=== PATIENT | female | born 1960 | race Caucasian/White ===

== ENCOUNTER → 2016-06-23 | Outpatient (CLI) | payer BC ==
[~2016-06-23] MED LIST: HYDR-5688 PO; OMEGCAP2 PO; POLYSOL4 OPB
--- NOTE | 2016-06-24 12:37 | MAMMOGRAPHY REPORT ---
BILATERAL DIGITAL SCREENING MAMMOGRAM TOMOSYNTHESIS WITH CAD: 06/23/2016 CLINICAL HISTORY: Routine screening. Patient has no complaints. TECHNIQUE: Breast tomosynthesis in addition to standard 2D mammography was performed. Current study was also evaluated with a Computer Aided Detection (CAD) system. COMPARISON: Comparison is made to exams dated: 06/20/2015 mammogram, 05/31/2013 mammogram, 05/25/2012 m ammogram, 05/19/2011 mammogram, 05/13/2010 mammogram, and 05/12/2009 mammogram - [facility]. BREAST COMPOSITION: The tissue of both breasts is extremely dense, which lowers the sensitivity of mammography. FINDINGS: There are diffuse bilateral microcalcifications. Stable asymmetries in the medial posteri or right breast and medial posterior left breast. No new suspicious mass, architectural distortion or cluster of microcalcifications is seen. IMPRESSION: ACR BI-RADS CATEGORY 1: NEGATIVE There is no mammographic evidence of malignancy. A 1 year screening mammogram is recommended. The p atient will receive written notification of the results. Approximately 10% of breast cancers are not detected with mammography. A negative mammographic repor t should not delay biopsy if a clinically suggestive mass is present. Marci Bright M.D. ay/:06/23/2016 22:12:20 Piano Regulator Inspector: Joelle HINOJOSA)(M), [facility] letter sent: Normal 1/2 BI-RADS Code: ACR BI-RADS Category 1: Negative
== END | disposition home or self-care (01) ==
LOC: C.MAMM 08:01
PROVIDERS: ATTEND Obstetrics & Gynecology
DX: Z12.31 Encounter for screening mammogram for malignant neoplasm of breast (principal)

== ENCOUNTER → 2016-07-15 | Outpatient (CLI) | payer BC | END | disposition home or self-care (01) | LOC: C.PAPS 14:43 | PROVIDERS: ATTEND Obstetrics & Gynecology | DX: Z01.419 Encounter for gynecological examination (general) (routine) without abnormal findings (principal); Z87.42 Personal history of other diseases of the female genital tract ==

== ENCOUNTER 2017-01-13 13:12 | Emergency (ER) | payer BC ==
[~2017-01-13] VITALS: Ht 157.5 cm; Wt 53.6 kg
[~2017-01-13 13:12] MED LIST changes: -HYDR-5688 PO
[2017-01-13 13:19] VITALS: TEMP 36.5; Ht 157.5 cm; Wt 53.6 kg
--- NOTE | 2017-01-13 13:24 | EMERGENCY ROOM VISIT NOTE ---
History First contact with patient: 13:24 (Yumi Landry M.D.) Chief Complaint: CHEST PAIN Stated Complaint: DIZZY HEAVY CHEST History of Present Illness The patient is a 56 year old female who presents to the Emergency Room with complaints of dizziness since 9 pm last night which began after running 4 miles last evening. She also complains of chest discomfort for the past several years as well as occasional palpitations for the past several years which have been heightened and more apparent in the last month since she began running 4 miles 3 times per week. She feels this is different than feeling dizzy from dehydration, as she feels her body veers off to one side and it changes/worsens with change in position. She has previously used albuterol inhalers for URTIs Dizziness is new, intermittent, with several severe episodes since 9 pm last night; Orthostatic in nature and still present while in ED today; occasionally associated with mild nausea. Chest discomfort is not worse than usual and she does not consider it painful; worsened with exercise. She has never smoked. Patient has significant FH of OR in grandfather, Valve replacement in grandmother, and Afib in mother. Patient has been investigated for her palpitations and was found to have PVCs. Patient reports significant PMH of mitral valve prolapse discovered as a teenager. (Yumi Landry M.D.) Review of Systems Patient reports occasional nausea with her dizziness Pt denies LOC, headache, fevers, chills, diaphoresis, visual changes, neck pain , tearing pain radiating to the back, personal history or family history of aneurysm or pulmonary embolism, uncontrolled hypertension, breathing difficulties, leg swelling, coagulation abnormalities, prolonged travel, recent surgery or immobilization, vomiting, abdominal pain, melena, hematochezia, urinary symptoms, numbness, weakness, lymphadenopathy, rash, or other complaints. (Yumi Landry M.D.) Past Medical/Surgical History Medical Problems: (1) Knee arthropathy (2) Mitral Valve Disorder (3) Palpitations (4) Premature Beats Nec Surgical Problems: (1) H/O shoulder surgery (Chucho Wood MD) Bronchitis (Yumi Landry M.D.) Family History Diabetes mellitus FH: cancer FH: gallbladder disease FH: heart disease (Yumi Landry M.D.) Diabetes mellitus FH: cancer FH: gallbladder disease FH: heart disease MGM - valve replacement Father - atrial fibrillation PGF - OR (Chucho Wood MD) Social History Smoking Status: Never Smoker Alcohol Use: occasionally Marital Status: Housing Status: lives with family Occupation Status: employed (Yumi Landry M.D.) 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 Oropharynx unremarkable. EYES: Normal conjunctiva. Sclera non-icteric. NECK: Supple. No nuchal rigidity. FROM. No JVD. RESPIRATORY: Clear to auscultation. CARDIAC: Regular rate, normal rhythm. Extremities warm and well perfused. Pulses equal. MVP noted. ABDOMEN: Soft, non-distended. No tenderness to palpation. No rebound or guarding. No masses. LOWER EXTREMITIES: Calves are equal size bilaterally and non-tender. No edema. No discoloration. NEURO: Normal sensorium. No sensory or motor deficits noted. SKIN: No rash or jaundice noted. (Yumi Landry M.D.) Medical Decision & Procedures ER Provider Diagnostic Interpretation: CHEST ONE VIEW PORTABLE CLINICAL HISTORY: Chest pain. COMPARISON STUDY: Chest radiograph December 13, 2014. FINDINGS: Lung volumes are normal. No pneumothorax or pleural effusion is present. There is no evidence of pulmonary edema. Nodular densities projecting over the lower lungs likely reflect nipple shadows. There is no evidence of pulmonary edema. No consolidation is identified. Cardiomediastinal silhouette is normal. IMPRESSION: No acute cardiopulmonary findings. Electronically signed by: Tristan Olguin M.D. 01/13/2017 1:54 PM Dictated Date/Time: 01/13/2017 1:53 PM (Chucho Wood MD) Laboratory Results 01/13/17 13:40 01/13/17 13:40 Test 01/13/17 13:40 01/13/17 13:47 Red Blood Count 5.05 M/uL (4.2-5.4) Mean Corpuscular Volume 88.7 fL (80-100) Mean Corpuscular Hemoglobin 30.9 pg (25-34) Mean Corpuscular Hemoglobin Concent 34.8 g/dl (32-36) RDW Standard Deviation 40.3 fL (36.4-46.3) RDW Coefficient of Variation 12.6 % (11.5-14.5) Mean Platelet Volume 8.5 fL (7.4-10.4) Prothrombin Time 10.5 SECONDS (9.0-12.0) Prothromb Time International Ratio 1.0 (0.9-1.1) Activated Partial Thromboplast Time 27.3 SECONDS (21.0-31.0) Partial Thromboplastin Ratio 1.1 Anion Gap 5.0 mmol/L (3-11) Est Creatinine Clear Calc Drug Dose 65.6 ml/min Estimated GFR () 103.5 Estimated GFR (Non- 89.3 BUN/Creatinine Ratio 19.7 (10-20) Calcium Level 9.2 mg/dl (8.5-10.1) Total Bilirubin 0.6 mg/dl (0.2-1) Aspartate Amino Transf (AST/SGOT) 18 U/L (15-37) Alanine Aminotransferase (ALT/SGPT) 20 U/L (12-78) Alkaline Phosphatase 89 U/L (45-117) Total Creatine Kinase 148 U/L (26-192) Creatine Kinase MB 2.2 ng/ml (0.5-3.6) Creatine Kinase MB Ratio 1.5 (0-3.0) Total Protein 7.3 gm/dl (6.4-8.2) Albumin 3.9 gm/dl (3.4-5.0) Globulin 3.4 gm/dl (2.5-4.0) Albumin/Globulin Ratio 1.1 (0.9-2) Bedside Troponin I < 0.030 ng/ml (0-0.045) (Chucho Wood MD) Medications Administered Medications (Trade) Dose Ordered Sig/Cristina Route Start Time Stop Time Status Last Admin Dose Admin Sodium Chloride 500 ml @ 999 mls/hr Q31M STAT IV 01/13/17 14:10 01/13/17 14:40 DC 01/13/17 14:18 999 MLS/HR Albuterol/ Ipratropium (Duoneb) 3 ml ONE STAT INH 01/13/17 14:11 01/13/17 14:12 DC 01/13/17 14:17 3 ML (Chucho Wood MD) ED Course 1325: Full history and 1440: Discussed w/ Dr. Campos 1525: Dr. Wood reassessed; patient asymptomatic at this time 1540: Reassessed patient, she continues to feel well 1553: Patient discharged (Yumi Landry M.D.) Medical Decision Prior records/ancillary studies reviewed. Triage Nursing notes reviewed. The patient's history was concerning for dizziness. Differential diagnosis: Etiologies such as benign positional vertigo, dehydration, hypovolemia, anemia, tumor, infection, hypoglycemia, electrolyte abnormalities, cardiac sources, intracerebral event, toxicologic, neurologic, as well as others were entertained. Physical examination: As above. ER treatment provided: IV hydration with normal saline, 500 ml bolus Patient had no improvement with duo-neb. Patient declined meclizine when offered on 2 different occasions. Patient not orthostatic, asymptomatic on discharge. Diagnostics interpretation by me: ECG: Normal sinus rhythm without ischemic change or evidence of dysrhythmia. Negative troponin (0.00) The labs revealed a normal CBC and chemistry panel. It appears the patient had an episode of dizziness. Possible etiologies include : dehydration, orthostasis. By the evaluation outlined above emergent etiologies such as infection, hypoglycemia, electrolyte abnormalities, cardiac sources, intracerebral event, toxicologic, neurologic, as well as others were deemed relatively unlikely. The patient was informed about the findings as listed above. All questions were answered and she was pleased with the treatment. Return instructions were outlined and the patient was discharged in stable condition. (Yumi Landry M.D.) Medication Reconcilliation Current Medication List: was personally reviewed by me (Yumi Landry M.D.) Impression Primary Impression: Dizziness Departure Information Dispostion Home / Self-Care Condition GOOD Prescriptions No Active Prescriptions or Reported Meds Referrals No Doctor, Assigned (PCP) Patient Instructions My [facility] Additional Instructions DIZZINESS INSTRUCTIONS: DO NOT drive, drink alcohol, operate machinery, or perform dangerous activities today. Rest and drink plenty of fluids as tolerated. Continue current medications. Return to the ER immediately for worsening or persistent dizziness, vomiting, headache, fevers, chest pains, difficulty breathing, black or bloody stools, slurred speech, numbness, weakness, visual changes, worsening of your condition , or as needed. Follow up with your primary physician in 2-3 days for a recheck of your current condition. Resident Tracking Resident Involvement: Resident Care Provided Care Provided: Adult ED (Yumi Landry M.D.)
[2017-01-13 13:40] VITALS: O2SAT 97
--- NOTE | 2017-01-13 13:56 | DIAGNOSTIC IMAGING REPORT ---
CHEST ONE VIEW PORTABLE CLINICAL HISTORY: Chest pain. COMPARISON STUDY: Chest radiograph December 13, 2014. FINDINGS: Lung volumes are normal. No pneumothorax or pleural effusion is present. There is no evidence of pulmonary edema. Nodular densities projecting over the lower lungs likely reflect nipple shadows. There is no evidence of pulmonary edema. No consolidation is identified. Cardiomediastinal silhouette is normal. IMPRESSION: No acute cardiopulmonary findings. Electronically signed by: Tristan Olguin M.D. 01/13/2017 1:54 PM Dictated Date/Time: 01/13/2017 1:53 PM
[2017-01-13] MEDS ORDERED: SODIUM CHLORIDE 0.9% 500ML 500 ML IV STA (14:10)
[2017-01-13] MEDS ORDERED: ALBUT/IPRATROP 3MG/0.5MG NEB 3 ML VIAL INH STA (14:11)
[2017-01-13 14:12] LABS: HEMATOCRIT 44.8 % (37-47); MEAN CELL VOLUME 88.7 fL (80-100); MEAN CORPUSCULAR HEMOGLOBIN 30.9 pg (25-34); MEAN CORPUSCULAR HGB CONC 34.8 g/dl (32-36); MEAN PLATELET VOLUME 8.5 fL (7.4-10.4); PLATELET COUNT 276 K/uL (130-400); RED BLOOD COUNT 5.05 M/uL (4.2-5.4); WHITE BLOOD COUNT 7.31 K/uL (4.8-10.8)
[2017-01-13 14:23] LABS: PARTIAL THROMBOPLASTIN RATIO 1.1; PROTHROMBIN TIME (PATIENT) 10.5 SECONDS (9.0-12.0)
[2017-01-13 14:30] LABS: BUN/CREATININE RATIO 19.7 (10-20); CALCIUM 9.2 mg/dl (8.5-10.1); CREATININE 0.74 mg/dl (0.60-1.20); POTASSIUM 3.5 mmol/L (3.5-5.1)
[2017-01-13 14:35] LABS: ALB/GLOB RATIO 1.1 (0.9-2); CKMB/CK RATIO 1.5 (0-3.0)
[2017-01-13 16:04] VITALS: BP 105/56; PULSE 71; O2SAT 98
--- NOTE | 2017-01-15 13:28 | EMERGENCY ROOM VISIT NOTE ---
ED Visit Note First contact with patient: 13:24 HPI: Dizziness, chest tightness palpitations after jogging. PE: AFVSS, NAD NC/AT, dry mm RRR, no murmurs CTAB Abd soft NT/ND Ext: no edema, erythema Neuro: grossly intact Plan: EKG unremarkable. Trop negative. Heart score 1, low risk. Unlikley cardiac. Sx most c/w dehydration, orthostasis. Reports 45 min workout with jogging and weights and was completely saturated with sweat. BUN/Cr near 20 c/w with dehydration. Improved after IVF. Previously evaluated with holter for pvcs. Plan for pcp f/u. I reviewed the patient's past medical history, medications, and visit nursing notes. I discussed the case with the resident, examined the patient, and agree with the findings and plan as documented in the residents note.
== END 2017-01-13 16:02 | disposition home or self-care (01) ==
LOC: C.EDB 13:14 → C.EDA 16:02
DX: R42 Dizziness and giddiness (principal); E86.0 Dehydration; I34.1 Nonrheumatic mitral (valve) prolapse; M17.9 Osteoarthritis of knee, unspecified; Z98.890 Other specified postprocedural states; Z83.3 Family history of diabetes mellitus; Z80.9 Family history of malignant neoplasm, unspecified; Z83.79 Family history of other diseases of the digestive system; Z82.49 Family history of ischemic heart disease and other diseases of the circulatory system

== ENCOUNTER → 2017-04-04 | Outpatient (CLI) | payer BC ==
[~2017-04-04] MED LIST changes: +GADAVIST IV PRN; -OMEGCAP2 PO; -POLYSOL4 OPB
--- NOTE | 2017-04-04 16:31 | DIAGNOSTIC IMAGING REPORT ---
MRI OF THE BRAIN WITHOUT AND WITH IV CONTRAST CLINICAL HISTORY: Headache and dizziness. COMPARISON STUDY: No previous studies for comparison. TECHNIQUE: MRI of the brain was performed from the vertex to the skull base utilizing various T1 and T2 weighted sequences. Following the IV administration of 5 mL of Gadavist contrast, additional enhanced images were obtained. FINDINGS: Sagittal T1, axial diffusion, proton density and T2 weighted axial, coronal FLAIR, and pre and post axial T1-weighted images were acquired. These were supplemented with post gadolinium coronal T1 weighted images. The pituitary is borderline enlarged measuring 8 mm in height. Axial diffusion-weighted images reveal no evidence of acute or subacute infarction. There is no evidence of ventricular dilatation. Proton density T2-weighted and FLAIR images reveal a few punctate foci of increased T2 signal within the white matter, likely on a small vessel basis. There are no abnormal flow voids. There is no evidence of pathologic enhancement. IMPRESSION: 1. Borderline pituitary enlargement for a 56-year-old female (8 mm in height) 2. No evidence of acute or subacute infarction 3. No evidence of hydrocephalus. 4. No pathologically enhancing masses Electronically signed by: Kirk Márquez M.D. 04/04/2017 4:30 PM Dictated Date/Time: 04/04/2017 4:26 PM
== END | disposition home or self-care (01) ==
LOC: C.MRI 15:19
PROVIDERS: ATTEND Nurse Practitioner Family
DX: R42 Dizziness and giddiness (principal); R51 Headache

== ENCOUNTER → 2017-06-27 | Outpatient (CLI) | payer BC ==
--- NOTE | 2017-06-27 15:19 | MAMMOGRAPHY REPORT ---
BILATERAL DIGITAL SCREENING MAMMOGRAM TOMOSYNTHESIS WITH CAD: 06/27/2017 CLINICAL HISTORY: Routine screening. Patient has no complaints. TECHNIQUE: Breast tomosynthesis in addition to standard 2D mammography was performed. Current study was also evaluated with a Computer Aided Detection (CAD) system. COMPARISON: Comparison is made to exams dated: 06/23/2016 mammogram, 06/20/2015 mammogram, 06/[place]/2014 [place] mogram, 05/31/2013 mammogram, 12/13/2012 mammogram, and 05/25/2012 ultrasound - [facility]ter. BREAST COMPOSITION: The tissue of both breasts is extremely dense, which lowers the sensitivity of m ammography. FINDINGS: The parenchymal pattern is similar to prior exams. There are diffuse benign-appearing rou nd and punctate microcalcifications. No developing mass, architectural distortion or cluster of susp icious microcalcifications is seen in either breast. IMPRESSION: ACR BI-RADS CATEGORY 2: BENIGN There is no mammographic evidence of malignancy. A 1 year screening mammogram is recommended. The pa tient will receive written notification of the results. Approximately 10% of breast cancers are not detected with mammography. A negative mammographic report should not delay biopsy if a clinically suggestive mass is present. Marci Bright M.D. ay/:06/27/2017 08:47:16 Plastic Eye Technician: January HINOJOSA)(M), [facility] letter sent: Normal 1/2 BI-RADS Code: ACR BI-RADS Category 2: Benign
== END | disposition home or self-care (01) ==
LOC: C.MAMM 08:01
PROVIDERS: ATTEND Obstetrics & Gynecology
DX: Z12.31 Encounter for screening mammogram for malignant neoplasm of breast (principal)

== ENCOUNTER → 2017-07-21 | Outpatient (CLI) | payer BC | END | disposition home or self-care (01) | LOC: C.PAPS 11:57 | PROVIDERS: ATTEND Obstetrics & Gynecology | DX: Z01.419 Encounter for gynecological examination (general) (routine) without abnormal findings (principal); N87.0 Mild cervical dysplasia ==